=== PATIENT | male | born 2000 | race Caucasian/White ===

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

== ENCOUNTER 2020-07-11 12:33 | Emergency (ER) | payer BC ==
[2020-07-11] MEDS ORDERED: KETOROLAC 15 MG/ML 1 ML VIAL IVP STA (12:50)
--- NOTE | 2020-07-11 13:01 | ED ---
General Adult HPI - General Chief complaint: Extremity Problem,Nontraumatic Stated complaint: L Foot Pain Time Seen by Provider: 07/11/20 12:43 Source: patient, RN notes reviewed, old records reviewed Mode of arrival: ambulatory Limitations: no limitations - History of Present Illness Initial comments: 20-year-old male presenting for evaluation of right foot pain. Patient denies any specific injury or overuse. Pain is predominantly in the right great toe. No previous history of inflammatory or infectious arthritis. No fever or chills. He has not noted any redness but has noted some swelling. Denies any symptoms in the proximal foot or leg. No constitutional symptoms. - Related Data Previous Rx's Medication Instructions Recorded Ibuprofen [Motrin] 600 mg PO Q8HR PRN #24 tab 07/11/20 Allergies Allergy/AdvReac Type Severity Reaction Status Date / Time No Known Allergies Allergy Verified 07/11/20 12:38 Review of Systems ROS Statement: Those systems with pertinent positive or pertinent negative responses have been documented in the HPI. ROS Other: All systems not noted in ROS Statement are negative. Past Medical History Past Medical History: No Reported History History of Any Multi-Drug Resistant Organisms: None Reported Past Surgical History: Orthopedic Surgery Past Psychological History: No Psychological Hx Reported Smoking Status: Never smoker Past Alcohol Use History: None Reported Past Drug Use History: None Reported General Exam Limitations: no limitations General appearance: alert, in no apparent distress Head exam: Present: atraumatic, normocephalic Eye exam: Present: normal appearance, PERRL ENT exam: Present: normal exam Neck exam: Present: normal inspection. Absent: tenderness Respiratory exam: Present: normal lung sounds bilaterally. Absent: respiratory distress, wheezes Cardiovascular Exam: Present: regular rate, normal rhythm GI/Abdominal exam: Present: soft. Absent: distended, tenderness, guarding Extremities exam: Present: joint swelling, other (Right great toe, there is no erythema, there is minimal soft tissue swelling, pain with both dorsiflexion and plantar flexion. Distal pulses are intact, normal sensation, normal cap refill.) Neurological exam: Present: alert, oriented X3 Psychiatric exam: Present: normal affect, normal mood Skin exam: Present: warm, dry, intact. Absent: cyanosis, diaphoretic, erythema Course Vital Signs 07/11/20 07/11/20 12:36 13:04 Temperature 98.4 F Pulse Rate 88 Respiratory 16 18 Rate Blood Pressure 160/78 O2 Sat by Pulse 97 Oximetry Medical Decision Making - Medical Decision Making 20-year-old male with pain in the right great toe. No erythema, minimal soft tissue swelling, no deformity. X-ray showing minimal osteoarthritis of the great toe, no fracture dislocation. I did obtain inflammatory markers in this patient, normal white blood cell count, normal electrolytes, CRP is nondetectable. Sed rate is pending. Patient will monitor his symptoms, he will follow with his primary care physician for reevaluation. In the meantime he'll take Motrin for pain and inflammation. He is given return parameters. - Lab Data Result diagrams: 07/11/20 12:55 07/11/20 12:55 Lab Results 07/11/20 07/11/20 Range/Units 12:55 12:55 WBC 8.3 (3.8-10.6) k/uL RBC 5.64 (4.30-5.90) m/uL Hgb 16.9 (13.0-17.5) gm/dL Hct 48.6 (39.0-53.0) % MCV 86.2 (80.0-100.0) fL MCH 30.0 (25.0-35.0) pg MCHC 34.8 (31.0-37.0) g/dL RDW 12.5 (11.5-15.5) % Plt Count 262 (150-450) k/uL MPV 7.2 Neutrophils % 59 % Lymphocytes % 29 % Monocytes % 7 % Eosinophils % 3 % Basophils % 1 % Neutrophils # 4.9 (1.3-7.7) k/uL Lymphocytes # 2.4 (1.0-4.8) k/uL Monocytes # 0.6 (0-1.0) k/uL Eosinophils # 0.3 (0-0.7) k/uL Basophils # 0.0 (0-0.2) k/uL Sodium 138 (137-145) mmol/L Potassium 4.2 (3.5-5.1) mmol/L Chloride 101 (98-107) mmol/L Carbon Dioxide 26 (22-30) mmol/L Anion Gap 11 mmol/L BUN 16 (9-20) mg/dL Creatinine 0.84 (0.66-1.25) mg/dL Est GFR (CKD-EPI)AfAm >90 (>60 ml/min/1.73 sqM) Est GFR (CKD-EPI)NonAf >90 (>60 ml/min/1.73 sqM) Glucose 95 (74-99) mg/dL Calcium 10.1 (8.4-10.2) mg/dL Total Bilirubin 0.8 (0.2-1.3) mg/dL AST 41 (17-59) U/L ALT 62 H (4-49) U/L Alkaline Phosphatase 58 (38-126) U/L C-Reactive Protein <5.0 (<10.0) mg/L Total Protein 8.1 (6.3-8.2) g/dL Albumin 5.0 (3.5-5.0) g/dL Disposition Clinical Impression: Sprain of toe, great, right Disposition: HOME SELF-CARE Condition: Good Instructions (If sedation given, give patient instructions): Osteoarthritis (ED) Prescriptions: Ibuprofen [Motrin] 600 mg PO Q8HR PRN #24 tab PRN Reason: Pain Is patient prescribed a controlled substance at d/c from ED?: No Referrals: Joe Kovacs DO [Primary Care Provider] - 1-2 days Time of Disposition: 13:53
[2020-07-11 13:20] LABS: Basophils % (A) 1 %; Eosinophils # (A) 0.3 k/uL (0-0.7); Eosinophils % (A) 3 %; HCT 48.6 % (39.0-53.0); HGB 16.9 gm/dL (13.0-17.5); Lymphocytes # (A) 2.4 k/uL (1.0-4.8); Lymphocytes % (A) 29 %; MCHC 34.8 g/dL (31.0-37.0); MCV 86.2 fL (80.0-100.0); Mean Platelet Volume 7.2; Monocytes # (A) 0.6 k/uL (0-1.0); Monocytes % (A) 7 %; Neutrophils # (A) 4.9 k/uL (1.3-7.7); Neutrophils % (A) 59 %; Platelet Count 262 k/uL (150-450); RBC 5.64 m/uL (4.30-5.90); RDW 12.5 % (11.5-15.5); WBC 8.3 k/uL (3.8-10.6)
[2020-07-11 13:23] LABS: ALT 62 U/L (4-49); AST 41 U/L (17-59); African American GFR (CKD) >90 (>60 ml/min/1.73 sqM); Alkaline Phosphatase 58 U/L (38-126); Anion Gap 11 mmol/L; Blood Urea Nitrogen 16 mg/dL (9-20); C Reactive Protein <5.0 mg/L (<10.0); Calcium 10.1 mg/dL (8.4-10.2); Carbon Dioxide 26 mmol/L (22-30); Chloride 101 mmol/L (98-107); Glucose 95 mg/dL (74-99); Non-African American GFR(CKD) >90 (>60 ml/min/1.73 sqM); Potassium 4.2 mmol/L (3.5-5.1); Sodium 138 mmol/L (137-145); Total Bilirubin 0.8 mg/dL (0.2-1.3); Total Protein 8.1 g/dL (6.3-8.2)
--- NOTE | 2020-07-11 13:36 | XR ---
Result: History: Pain. Comparison: None available. Technique: 3 views of the right foot. Findings: The bone mineralization is appropriate for age. No acute fracture or dislocation is seen. The visualized osseous structures are in anatomic alignmen t. There are mild degenerative changes of the great toe interphalangeal joint. Impression: No acute osseous abnormality. 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
[2020-07-11 14:15] VITALS: BP 141/78; PULSE 74; RESP 16; TEMP 97.8
[2020-07-11 14:44] LABS: Erythrocyte Sedimentation Rate 2 mm/hr (0-15)
== END 2020-07-11 14:10 | disposition home or self-care (01) ==
LOC: EC 12:33
DX: S93.501A Unspecified sprain of right great toe, initial encounter (principal); M19.071 Primary osteoarthritis, right ankle and foot; X58.XXXA Exposure to other specified factors, initial encounter
CPT/HCPCS: 36415; 80053; 85652; 85025; 86140; 73630; 99284; 96374; J1885